=== PATIENT | female | born 1995 | race Two or more races ===

== ENCOUNTER 2024-04-28 10:28 | Emergency (ER) | payer MEDICAID, OTHER ==
[~2024-04-28] VITALS: Ht 299.7 cm; Wt 101.6 kg
[2024-04-28 10:31] VITALS: BP 120/85; PULSE 83; RESP 20; TEMP 97.5; O2SAT 98
[2024-04-28] MEDS: MECLIZINE 25 MG TAB PO ONE (12:04)
[2024-04-28] MEDS: ONDANSETRON 4 MG/2 ML VIAL IVP ONE (12:04)
[2024-04-28 12:38] LABS: BASOPHILS # (AUTO) 0.1 K/uL (0.00-0.22); BASOPHILS % (AUTO) 0.6 % (0.0-2.0); HEMATOCRIT 43.6 % (36-48); HEMOGLOBIN 14.8 g/dL (12.0-16.0); LYMPHOCYTES # (AUTO) 0.5 K/uL (2.5-16.5); LYMPHOCYTES % (AUTO) 5.7 % (20.5-51.1); MEAN CORPUSCULAR HEMOGLOBIN 31 pg (27-31); MEAN CORPUSCULAR HGB CONC 34 g/dL (33-37); MEAN CORPUSCULAR VOLUME 91.9 fL (80-94); MONOCYTES # (AUTO) 0.3 K/uL (0.8-1.0); MONOCYTES % (AUTO) 3.6 % (1.7-9.3); NEUTROPHILS # (AUTO) 8.3 K/uL (1.8-7.7); NEUTROPHILS % (AUTO) 90.1 % (42.2-75.2); PLATELET COUNT (AUTO) 282 K/uL (140-450); RED BLOOD CELL COUNT(AUTO) 4.75 MIL/uL (4.20-5.40); RED CELL DISTRIBUTION WIDTH 13.4 % (11.6-13.7); WHITE BLOOD COUNT (AUTO) 9.2 K/uL (4.8-10.8)
[2024-04-28 12:55] LABS: ANION GAP 13.4 (8-16); CALCIUM 9.3 mg/dL (8.5-10.1); CARBON DIOXIDE 25.4 mmol/L (21-32); CREATININE 0.8 mg/dL (0.6-1.3); POTASSIUM 3.8 mmol/L (3.5-5.1)
[2024-04-28] MEDS ORDERED: ONDA-188 PO (13:30)
[2024-04-28] MEDS ORDERED: MECL-335 PO (13:31)
[2024-04-28] MEDS: ACETAMINOPHEN EXTRA STRENGTH 500 MG TAB PO ONE (13:38)
[2024-04-28] MEDS: METOCLOPRAMIDE 10 MG/2 ML INJ VIAL IVP ONE (13:39)
[2024-04-28] MEDS: KETOROLAC 30 MG/ML VIAL IVP ONE (13:39)
[2024-04-28 14:07] VITALS: BP 136/70; PULSE 88; RESP 18; O2SAT 99
== END 2024-04-28 14:08 | disposition home or self-care (01) ==
LOC: MED 10:28
DX: R42 Dizziness and giddiness (principal); R51.9 Headache, unspecified; E05.90 Thyrotoxicosis, unspecified without thyrotoxic crisis or storm; Z79.899 Other long term (current) drug therapy
CPT/HCPCS: 36415; 70450; 80048; 81025; 85025; 93005; 96374; 96375; 99285; J1885; J2405; J2765; J8597